=== PATIENT | male | born 1955 | race Caucasian/White ===

== ENCOUNTER → 2025-01-23 | Outpatient (CLI) | payer OTHER, SELFPAY ==
--- NOTE | 2025-01-23 11:37 | RAD_ITS ---
PROCEDURE: CHEST PA AND LATERAL (RADCXR), 01/23/2025 REASON FOR EXAM: R/O PNEUMONIA TECHNIQUE: PA and lateral views of the chest were obtained. COMPARISON: None FINDINGS: Heart: Unremarkable. Mediastinum: Unremarkable. Lungs/pleura: Mild streaky vaguely linear right basilar opacities most evident on the lateral view. No effusion or visible pneumothorax. Bones: Trace thoracic dextroscoliosis may be positional. Multilevel spondylosis. Lines and support devices: None. RAD/Chest PA and Lateral IMPRESSION: 1. Mild streaky right basilar opacities with appearance suggestive of atelectas is/scarring although pneumonia cannot be entirely excluded in the absence of priors to confirm chronicity. 2. Additional description as above. Reading Location: [id number]
== END | disposition home or self-care (01) ==
LOC: RAD 11:32
PROVIDERS: Referring Provider Nurse Practitioner Family; Visit Provider Nurse Practitioner Family
DX: J20.9 Acute bronchitis, unspecified (principal)
CPT/HCPCS: 71046